=== PATIENT | male | born 1970 ===

== ENCOUNTER 2021-12-22 13:09 | Emergency (ER) | payer SELFPAY ==
[~2021-12-22] VITALS: Ht 177.8 cm; Wt 74.8 kg
== END 2021-12-22 17:00 | disposition home or self-care (01) ==
LOC: ER 13:09
DX: M54.50 Low back pain, unspecified (principal); K40.90 Unilateral inguinal hernia, without obstruction or gangrene, not specified as recurrent
CPT/HCPCS: A9270; J1885